=== PATIENT | female | born 1955 | race Caucasian/White ===

== ENCOUNTER 2023-09-21 02:02 | Emergency (ER) | payer MEDICARE, BC ==
[~2023-09-21] VITALS: Ht 167.6 cm; Wt 77.0 kg
[2023-09-21 03:04] VITALS: O2SAT 95
[2023-09-21] MEDS ORDERED: ONDANSETRON HCL 4MG/2ML INJ IV STA (03:22)
[2023-09-21 03:26] LABS: BASOPHILS % 0.7 % (0.0-2.0); EOSINOPHILS % 3.1 % (0.0-5.0); HEMATOCRIT. 34.5 % (36.0-48.0); HEMOGLOBIN. 11.2 g/dL (12.0-16.0); LYMPHOCYTES % 26.3 % (20.0-50.0); MEAN CORPUSCULAR HEMOGLOBIN 28.5 pg (28.0-32.0); MEAN CORPUSCULAR HGB CONC 32.4 g/dL (31.0-37.0); MEAN CORPUSCULAR VOLUME 87.9 fL (81.0-99.0); MEAN PLATELET VOLUME 7.3 fl (7.4-10.4); MONOCYTES % 9.7 % (2.0-8.0); NEUTROPHILS % 60.2 % (40.0-76.0); PLATELET 186 x1000/uL (130-400); RED BLOOD CELL COUNT 3.93 mill/uL (4.2-5.4); RED CELL DISTRIBUTION WIDTH 20.8 % (11.6-14.6); WHITE BLOOD COUNT 6.9 x1000/uL (4.5-11.0)
[2023-09-21 03:27] LABS: CHLORIDE 107 mEq/L (98-107); SODIUM 139 mEq/L (136-145)
[2023-09-21 03:28] LABS: CARBON DIOXIDE 22 mEq/L (21-32)
[2023-09-21 03:29] LABS: CALCIUM 9.4 mg/dL (8.7-10.4)
[2023-09-21 03:33] LABS: CREATININE 0.9 mg/dL (0.6-1.0); GLUCOSE 112 mg/dL (70-105); UREA NITROGEN BLOOD 12 mg/dL (9-23)
[2023-09-21 03:35] LABS: ALANINE AMINOTRANSFERASE 12 IU/L (10-49); ALBUMIN 4.1 g/dL (3.2-4.8); ASPARTATE AMINOTRANSFERASE 14 IU/L (<34)
[2023-09-21 03:36] LABS: BILIRUBIN TOTAL 0.3 mg/dL (0.1-1.0); PROTEIN TOTAL 6.1 g/dL (6.0-8.3)
[2023-09-21 04:00] LABS: BILIRUBIN DIRECT < 0.1 mg/dL (<=3.0)
[2023-09-21] MEDS: DIPHENHYDRAMINE 50MG/ML VIAL IV ONE (05:29)
[2023-09-21] MEDS ORDERED: IOHEXOL-300 100 ML BOTTLE ONE (05:29)
[2023-09-21] MEDS: HYDROMORPHONE HCL/PF 2MG/ML CPJ IV ONE (05:32)
[2023-09-21] MEDS: ONDANSETRON HCL 4MG/2ML INJ IV NR (05:32)
[2023-09-21] MEDS: SODIUM CHLORIDE 0.9% 1,000 ML IV ONE (05:34)
[2023-09-21 07:14] VITALS: BP 116/68; PULSE 63; RESP 14; TEMP 97.8
== END 2023-09-21 07:17 | disposition home or self-care (01) ==
LOC: ER 02:02
DX: R10.84 Generalized abdominal pain (principal); E78.00 Pure hypercholesterolemia, unspecified; Z85.3 Personal history of malignant neoplasm of breast; Z87.19 Personal history of other diseases of the digestive system; Z86.39 Personal history of other endocrine, nutritional and metabolic disease
CPT/HCPCS: 99285; 74177; 96374; 96375; 71045; 96361; 80076; 80048; 83605; 83690; 85025; 87040; 36415; Q9967; J1200; J2405; J1170; J7030

== ENCOUNTER 2023-09-29 20:06 | Emergency (ER) | payer MEDICARE, BC ==
[~2023-09-29] VITALS: Ht 167.6 cm; Wt 77.0 kg
[2023-09-29 20:35] VITALS: O2SAT 99
[2023-09-29 21:50] LABS: BASOPHILS % 0.4 % (0.0-2.0); EOSINOPHILS % 2.8 % (0.0-5.0); HEMATOCRIT. 36.7 % (36.0-48.0); HEMOGLOBIN. 11.9 g/dL (12.0-16.0); MEAN CORPUSCULAR HEMOGLOBIN 29.3 pg (28.0-32.0); MEAN CORPUSCULAR HGB CONC 32.4 g/dL (31.0-37.0); MEAN CORPUSCULAR VOLUME 90.5 fL (81.0-99.0); MEAN PLATELET VOLUME 7.2 fl (7.4-10.4); MONOCYTES % 6.8 % (2.0-8.0); PLATELET 193 x1000/uL (130-400); RED BLOOD CELL COUNT 4.06 mill/uL (4.2-5.4); RED CELL DISTRIBUTION WIDTH 19.5 % (11.6-14.6); WHITE BLOOD COUNT 8.1 x1000/uL (4.5-11.0)
[2023-09-29 21:55] LABS: CHLORIDE 108 mEq/L (98-107); POTASSIUM 3.9 mEq/L (3.5-5.1); SODIUM 138 mEq/L (136-145)
[2023-09-29 21:57] LABS: CALCIUM 9.4 mg/dL (8.7-10.4); CARBON DIOXIDE 25 mEq/L (21-32)
[2023-09-29 22:02] LABS: CREATININE 0.8 mg/dL (0.6-1.0); GLUCOSE 108 mg/dL (70-105); UREA NITROGEN BLOOD 8 mg/dL (9-23)
[2023-09-29 22:03] LABS: ALANINE AMINOTRANSFERASE 9 IU/L (10-49)
[2023-09-29 22:04] LABS: ALBUMIN 4.2 g/dL (3.2-4.8); ASPARTATE AMINOTRANSFERASE 15 IU/L (<34); BILIRUBIN TOTAL 0.2 mg/dL (0.1-1.0); PROTEIN TOTAL 6.7 g/dL (6.0-8.3)
[2023-09-29 22:05] LABS: BILIRUBIN DIRECT < 0.1 mg/dL (<=3.0)
[2023-09-30] MEDS ORDERED: DIPHENHYDRAMINE 50MG/ML VIAL IM ONE (03:00)
[2023-09-30] MEDS ORDERED: ONDANSETRON 4MG ODT PO ONE (03:00)
[2023-09-30] MEDS ORDERED: HYDROMORPHONE HCL/PF 2MG/ML INJ IM ONE (03:00)
[2023-09-30 04:45] VITALS: TEMP 98.3
[2023-09-30 04:54] VITALS: BP 120/50; PULSE 60; RESP 10
[2023-09-30] MEDS: HYDROMORPHONE HCL/PF 2MG/ML INJ IM NR (04:54)
[2023-09-30] MEDS: DIPHENHYDRAMINE 50MG/ML VIAL IM NR (05:01)
[2023-09-30] MEDS: ONDANSETRON 4MG ODT PO NR (05:01)
== END 2023-09-30 05:45 | disposition home or self-care (01) ==
LOC: ER 20:06
DX: R10.9 Unspecified abdominal pain (principal); R11.2 Nausea with vomiting, unspecified; E78.00 Pure hypercholesterolemia, unspecified; E03.9 Hypothyroidism, unspecified; Z90.710 Acquired absence of both cervix and uterus; Z88.0 Allergy status to penicillin; Z88.2 Allergy status to sulfonamides; Z88.6 Allergy status to analgesic agent
CPT/HCPCS: 99285; 74176; 80076; 80048; 85025; 36415; 96372; Q0162; J1200; J1170

== ENCOUNTER 2023-12-20 12:07 | Emergency (ER) | payer MEDICARE, BC ==
[~2023-12-20] VITALS: Ht 167.6 cm; Wt 81.0 kg
[~2023-12-20 12:07] MED LIST: ATOR10TA69 PO; LEVO75TA7 PO
[2023-12-20 12:13] VITALS: O2SAT 98
[2023-12-20] MEDS: SODIUM CHLORIDE 0.9% 1,000 ML IV ONE (12:58)
[2023-12-20] MEDS ORDERED: HYDROMORPHONE HCL/PF 2MG/ML INJ IV ONE (13:30)
[2023-12-20] MEDS: DIPHENHYDRAMINE 50MG/ML VIAL IV ONE (13:54)
[2023-12-20] MEDS: HYDROMORPHONE HCL/PF 1MG/ML INJ IV NR (13:56)
[2023-12-20 14:05] LABS: CHLORIDE 108 mEq/L (98-107); POTASSIUM 3.8 mEq/L (3.5-5.1); SODIUM 138 mEq/L (136-145)
[2023-12-20 14:06] LABS: CARBON DIOXIDE 22 mEq/L (21-32)
[2023-12-20 14:07] LABS: BASOPHILS % 0.5 % (0.0-2.0); EOSINOPHILS % 1.2 % (0.0-5.0); HEMATOCRIT. 31.5 % (36.0-48.0); HEMOGLOBIN. 10.2 g/dL (12.0-16.0); LYMPHOCYTES % 15.8 % (20.0-50.0); MEAN CORPUSCULAR HEMOGLOBIN 27.5 pg (28.0-32.0); MEAN CORPUSCULAR HGB CONC 32.5 g/dL (31.0-37.0); MEAN CORPUSCULAR VOLUME 84.6 fL (81.0-99.0); MEAN PLATELET VOLUME 7.5 fl (7.4-10.4); MONOCYTES % 6.5 % (2.0-8.0); PLATELET 236 x1000/uL (130-400); RED BLOOD CELL COUNT 3.73 mill/uL (4.2-5.4); RED CELL DISTRIBUTION WIDTH 15.7 % (11.6-14.6); WHITE BLOOD COUNT 8.3 x1000/uL (4.5-11.0)
[2023-12-20 14:11] LABS: CREATININE 0.7 mg/dL (0.6-1.0); GLUCOSE 106 mg/dL (70-105); UREA NITROGEN BLOOD 7 mg/dL (9-23)
[2023-12-20 14:13] LABS: ALANINE AMINOTRANSFERASE 10 IU/L (10-49); ALBUMIN 4.7 g/dL (3.2-4.8); ASPARTATE AMINOTRANSFERASE 15 IU/L (<34); BILIRUBIN TOTAL 0.2 mg/dL (0.1-1.0); PROTEIN TOTAL 7.2 g/dL (6.0-8.3)
[2023-12-20 14:17] LABS: CLARITY URINE CLEAR (CLEAR); COLOR URINE YELLOW (YELLOW); GLUCOSE URINE NEGATIVE (NEGATIVE); KETONES URINE NEGATIVE (NEGATIVE); LEUKOCYTE ESTERASE URINE NEGATIVE (NEGATIVE); NITRITE URINE NEGATIVE (NEGATIVE); OCCULT BLOOD URINE NEGATIVE (NEGATIVE); PH URINE 6.5 (4.5-8.0); PROTEIN URINE NEGATIVE (NEGATIVE); SPECIFIC GRAVITY URINE 1.019 (1.005-1.030); UROBILINOGEN URINE 0.2 E.U./dL (0.2-1.0)
[2023-12-20 14:18] LABS: BILIRUBIN DIRECT < 0.1 mg/dL (<=3.0); TROPONIN I HIGH SENSITIVITY < 4 ng/L (3.0-34)
[2023-12-20 14:51] LABS: INR 0.9; PROTHROMBIN TIME 10.3 sec (9.6-11.0)
[2023-12-20 17:40] VITALS: BP 145/67; PULSE 97; RESP 18; TEMP 36.89184; O2SAT 98
[2023-12-20] MEDS ORDERED: IOHEXOL-300 100 ML BOTTLE ONE (20:09)
== END 2023-12-20 17:43 | disposition home or self-care (01) ==
LOC: ER 12:07 → EDBEDREQTM 16:39 → EDBEDREQ 16:39 → ER 17:43
DX: R10.9 Unspecified abdominal pain (principal); E78.00 Pure hypercholesterolemia, unspecified; Z88.2 Allergy status to sulfonamides; Z88.5 Allergy status to narcotic agent; Z90.49 Acquired absence of other specified parts of digestive tract; Z98.890 Other specified postprocedural states; Z86.39 Personal history of other endocrine, nutritional and metabolic disease; Z90.10 Acquired absence of unspecified breast and nipple; Z90.710 Acquired absence of both cervix and uterus; Z90.89 Acquired absence of other organs; Z85.9 Personal history of malignant neoplasm, unspecified
CPT/HCPCS: 99291; 74177; 96374; 71045; 96375; 80076; 80048; 81003; 83690; 85025; 85610; 84484; 36415; 93005; Q9967; J1200; J1170; J7030

== ENCOUNTER 2024-02-29 02:09 | Emergency (ER) | payer MEDICARE, BC ==
[~2024-02-29] VITALS: Ht 167.6 cm; Wt 79.0 kg
[~2024-02-29 02:09] MED LIST changes: +EFEX1 PO; +ESOM40CA MT; +TRAZ150T78 PO
[2024-02-29 02:18] VITALS: BP 136/76; RESP 16; TEMP 98.1; O2SAT 99
[2024-02-29 02:32] VITALS: PULSE 77; O2SAT 100
== END 2024-02-29 04:30 | disposition left against medical advice (07) ==
LOC: ER 02:21
DX: R10.9 Unspecified abdominal pain (principal); Z53.21 Procedure and treatment not carried out due to patient leaving prior to being seen by health care provider

== ENCOUNTER 2024-03-26 16:29 | Inpatient (IN) | payer MEDICARE, BC ==
[~2024-03-26] VITALS: Ht 167.6 cm; Wt 79.3 kg
[2024-03-26 16:47] VITALS: O2SAT 100
[2024-03-26] MEDS ORDERED: METOCLOPRAMIDE HCL 10MG/2ML VIAL IV STA (17:29)
[2024-03-26 17:58] LABS: BASOPHILS % 0.6 % (0.0-2.0); DIFFERENTIAL COMMENT 0; EOSINOPHILS % 2.1 % (0.0-5.0); HEMATOCRIT. 35.1 % (36.0-48.0); HEMOGLOBIN. 11.5 g/dL (12.0-16.0); LYMPHOCYTES % 23.9 % (20.0-50.0); MEAN CORPUSCULAR HEMOGLOBIN 28.3 pg (28.0-32.0); MEAN CORPUSCULAR HGB CONC 32.7 g/dL (31.0-37.0); MEAN CORPUSCULAR VOLUME 86.5 fL (81.0-99.0); MEAN PLATELET VOLUME 7.3 fl (7.4-10.4); MONOCYTES % 9.1 % (2.0-8.0); NEUTROPHILS % 64.3 % (40.0-76.0); PLATELET 198 x1000/uL (130-400); RED BLOOD CELL COUNT 4.06 mill/uL (4.2-5.4); RED CELL DISTRIBUTION WIDTH 17.1 % (11.6-14.6)
[2024-03-26 18:05] LABS: CHLORIDE 106 mEq/L (98-107); POTASSIUM 3.7 mEq/L (3.5-5.1); SODIUM 138 mEq/L (136-145)
[2024-03-26 18:06] LABS: CALCIUM 10.1 mg/dL (8.7-10.4); CARBON DIOXIDE 23 mEq/L (21-32); INR 0.9; PROTHROMBIN TIME 10.5 sec (9.6-11.0)
[2024-03-26 18:11] LABS: CREATININE 0.8 mg/dL (0.6-1.0); GLUCOSE 100 mg/dL (70-105); UREA NITROGEN BLOOD 14 mg/dL (9-23)
[2024-03-26 18:13] LABS: ALANINE AMINOTRANSFERASE 10 IU/L (10-49); ALBUMIN 4.5 g/dL (3.2-4.8); ASPARTATE AMINOTRANSFERASE 17 IU/L (<34); BILIRUBIN TOTAL 0.2 mg/dL (0.1-1.0); PROTEIN TOTAL 6.7 g/dL (6.0-8.3)
[2024-03-26 18:15] LABS: BILIRUBIN DIRECT < 0.1 mg/dL (<=3.0); TROPONIN I HIGH SENSITIVITY < 4 ng/L (3.0-34)
[2024-03-26] MEDS ORDERED: HYDROMORPHONE HCL/PF 2MG/ML INJ IV ONE (21:00)
[2024-03-26] MEDS: METOCLOPRAMIDE HCL 10MG/2ML VIAL IV NR (21:34)
[2024-03-26] MEDS: HYDROMORPHONE HCL/PF 1MG/ML INJ IV NR (21:34)
[2024-03-27] VITALS: BP 101/49; PULSE 65; RESP 18; TEMP 36.28068; O2SAT 98
[2024-03-27] MEDS: ONDANSETRON HCL 4MG/2ML INJ IV NR (02:47)
[2024-03-27 04:00] VITALS: BP 110/51; PULSE 54; RESP 17; TEMP 36.55848; O2SAT 99
[2024-03-27] MEDS ORDERED: DOCUSATE SODIUM 100MG CAPSULE PO PRN (06:15)
[2024-03-27] MEDS ORDERED: ZOLPIDEM TARTRATE 5MG TABLET PO PRN (06:15)
[2024-03-27] MEDS ORDERED: CLONIDINE 0.1MG TABLET PO PRN (06:15)
[2024-03-27] MEDS ORDERED: ACETAMINOPHEN 325MG TABLET PO PRN ×2 (06:15)
[2024-03-27] MEDS ORDERED: GUAIFENESIN 200MG/10ML SUGAR FREE UDC PO PRN (06:15)
[2024-03-27] MEDS ORDERED: KETOROLAC 30MG/ML VIAL IV PRN (06:15)
[2024-03-27] MEDS ORDERED: IPRATROPIUM/ALBUTEROL 0.5-3(2.5)MG/3ML NEB NEB PRN (06:15)
[2024-03-27] MEDS ORDERED: NITROGLYCERIN 0.4MG TABLET SL SL PRN (06:15)
[2024-03-27] MEDS ORDERED: LACTATED RINGERS 1,000 ML IV SCH (06:15)
[2024-03-27] MEDS ORDERED: MAGNESIUM/ALUMINUM HYDROXIDE/SIMETHICONE 30ML UDC PO PRN (06:15)
[2024-03-27] MEDS ORDERED: ONDANSETRON HCL 4MG/2ML INJ IV PRN (06:15)
[2024-03-27] MEDS ORDERED: SUCRALFATE 1G TABLET PO SCH (06:45)
[2024-03-27] MEDS ORDERED: ENOXAPARIN 40MG/0.4ML SYR SUBCUT SCH (09:00)
[2024-03-27] MEDS ORDERED: PANTOPRAZOLE SODIUM 40 MG/VIAL IV SCH (09:00)
== END 2024-03-27 05:20 | disposition left against medical advice (07) | DRG 392 ==
LOC: ER 16:29 → EDBEDREQ 17:32 → 5WST 20:54 → EDBEDREQTM 20:58 → EDBEDREQ 20:58
PROVIDERS: ADMIT Internal Medicine; ATTEND Internal Medicine
DX: K29.70 Gastritis, unspecified, without bleeding (principal); E03.9 Hypothyroidism, unspecified; E78.00 Pure hypercholesterolemia, unspecified; Z53.29 Procedure and treatment not carried out because of patient's decision for other reasons; C50.912 Malignant neoplasm of unspecified site of left female breast; C50.911 Malignant neoplasm of unspecified site of right female breast; Z79.899 Other long term (current) drug therapy; Z88.2 Allergy status to sulfonamides; Z88.0 Allergy status to penicillin; Z90.49 Acquired absence of other specified parts of digestive tract; Z90.710 Acquired absence of both cervix and uterus; Z76.5 Malingerer [conscious simulation]
CPT/HCPCS: 36415; 71045; 80048; 80076; 84484; 85025; 93005; 99285; J1171; J2405; J2765; J7120

== ENCOUNTER 2024-04-03 03:12 | Emergency (ER) | payer MEDICARE, BC ==
[~2024-04-03] VITALS: Ht 167.6 cm; Wt 77.0 kg
[2024-04-03 03:24] VITALS: O2SAT 99
[2024-04-03 03:52] VITALS: O2SAT 99
[2024-04-03] MEDS: ACETAMINOPHEN 325MG TABLET PO ONE (04:33)
[2024-04-03] MEDS: ONDANSETRON HCL 4MG/2ML INJ IV ONE (04:33)
[2024-04-03 05:14] LABS: BASOPHILS % 0.6 % (0.0-2.0); EOSINOPHILS % 2.6 % (0.0-5.0); HEMATOCRIT. 39.2 % (36.0-48.0); HEMOGLOBIN. 12.3 g/dL (12.0-16.0); LYMPHOCYTES % 23.7 % (20.0-50.0); MEAN CORPUSCULAR HGB CONC 31.4 g/dL (31.0-37.0); MEAN CORPUSCULAR VOLUME 89.1 fL (81.0-99.0); MEAN PLATELET VOLUME 7.4 fl (7.4-10.4); MONOCYTES % 6.5 % (2.0-8.0); NEUTROPHILS % 66.6 % (40.0-76.0); PLATELET 229 x1000/uL (130-400); RED CELL DISTRIBUTION WIDTH 16.8 % (11.6-14.6); WHITE BLOOD COUNT 8.1 x1000/uL (4.5-11.0)
[2024-04-03] MEDS ORDERED: OXYCODONE HCL/ACETAMINOPHEN 5/325MG TABLET PO ONE (05:45)
[2024-04-03 06:18] VITALS: BP 100/79; PULSE 57; RESP 18; TEMP 98.2
[2024-04-03] MEDS: OXYCODONE HCL/ACETAMINOPHEN 5/325MG TABLET PO NR (06:18)
[2024-04-03] MEDS: ACETAMINOPHEN 325MG TABLET PO NR (06:18)
[2024-04-03] MEDS: DIPHENHYDRAMINE 25MG CAPSULE PO NR (06:19)
[2024-04-03] MEDS: ONDANSETRON HCL 4MG/2ML INJ IV NR (06:19)
[2024-04-03] MEDS: DIPHENHYDRAMINE 25MG CAPSULE PO ONE (06:19)
== END 2024-04-03 06:35 | disposition left against medical advice (07) ==
LOC: ER 03:12
DX: G89.29 Other chronic pain (principal); R11.2 Nausea with vomiting, unspecified
CPT/HCPCS: 99285; 74176; 96374; 71045; 85025; 36415; 93005; 96376; Q0163